=== PATIENT | male | born 1935 | race Caucasian/White ===

== ENCOUNTER 2017-04-23 15:46 | Outpatient (CLI) | payer MEDICARE ==
--- OUTSIDE RECORDS SUMMARY | 2017-04-23 15:49 | XMS | Clinical Summary ---
:1935 Author Organization [facility] Address [address] [place] [address] Phone Care Team Providers Name Role Phone , Primary Care Provider Unavailable Allergies Not on File Current Medications Not on file Active Problems Not on file Social History Tobacco Use Types Packs/Day Years Used Date Never Assessed Sex Assigned at Date Recorded Not on file Last Filed Vital Signs Not on file Plan of Treatment Health Maintenance Due Date Last Done Comments INFLUENZA VACCINE 04/19/2017 Results Not on filefrom Last 3 Months
[2017-04-23 18:28] LABS: #Eosinphils 0.3 thou/uL (0.0-0.7); #Monocytes 0.7 thou/uL (0.11-0.59); #Neutrophils 3.3 thou/uL (1.40-6.50); %Basophils 0.3 % (0.0-1.0); %Eosinophils 6.4 % (0.0-10.0); %Lymphocytes 18.2 % (21.0-51.0); %Monocytes 13.9 % (0.0-10.0); Mean Platelet Volume 8.8 fL (7.4-10.4); Red Blood Cell (RBC) Count 4.33 mill/uL (4.70-6.10); White Blood Cell (WBC) Count 5.3 thou/uL (4.8-10.8)
[2017-04-23 18:47] LABS: Anion Gap 13 mmol/L (10-20); BUN (Urea Nitrogen) 16 mg/dL (8.4-25.7); Calc. Creatinine Clearance 0 mL/min (70-130); Calcium 9.4 mg/dL (7.8-10.44); Carbon Dioxide 24 mmol/L (23-31); Chloride 100 mmol/L (98-107); Estimated GFR-MDRD Greater than 90
--- NOTE | 2017-04-26 17:55 | EKG ---
Test Reason : Blood Pressure : / mmHG Vent. Rate : 071 BPM Atrial Rate : 071 BPM P-R Int : 188 ms QRS Dur : 100 ms QT Int : 412 ms P-R-T Axes : 022 -59 060 degrees QTc Int : 447 ms Sinus rhythm with occasional Premature ventricular complexes Left anterior fascicular block Nonspecific T wave abnormality , Can not R./O ischemia. Abnormal ECG No previous ECGs available Confirmed by MARIAM PACE ([id number]) on 04/26/2017 5:54:54 PM Referred By: Perfecto MAYER Confirmed By:MARIAM PACE
== END 2017-04-23 15:47 | disposition home or self-care (01) ==
LOC: LABBT 15:46
PROVIDERS: ATTEND Specialist
DX: Z01.818 Encounter for other preprocedural examination (principal); K40.90 Unilateral inguinal hernia, without obstruction or gangrene, not specified as recurrent
CPT/HCPCS: 80048; 85025; 93005; 93010

== ENCOUNTER 2017-04-29 08:50 | Day surgery (SDC) | payer MEDICARE ==
[2017-04-23 16:01] VITALS: BMI 23.7
--- NOTE | 2017-04-24 06:22 | HP ---
HISTORY OF PRESENT ILLNESS: Gorge Bergman is an 81-year-old male patient referred by Dr. Lucas in [facility]. The patient has a large right inguinal hernia that is bothersome to him. He has had a prior right hqskv-jqu-rvfu amputation and the hernia is impeding his ability to ambulate with his prosthe sis. He thought he had a small left inguinal hernia, but exam does not reveal that. He was examine d supine, standing and sitting. The patient is noted to have an incisional hernia from a previous a ortobifemoral bypass grafting. This is approximately 6 x 3 cm defect and had been previously seen b y another surgeon Dr. Mac in [place] who recommended observing it. This hernia is asymptoma tic and has been unchanged and I agree with that assessment. Plan is to repair his right inguinal h ernia with mesh as an outpatient. I have discussed this with the patient and his extensively a nd discussed the risk of infection, bleeding, reoperation, recurrence of hernia in use of mesh and t sonia are agreeable. We will plan this as an outpatient. Patient has had prior urinary retention problems. He has had prostate cancer with radiation therapy . He had a vaporization procedure due to bleeding in his bladder. He has had a previous TURP. Dur ing EGD in the past, patient suffered urinary retention. Apparently in [place], a urologist place a Paredes, decompressed him, removed it. He experienced retention again and then presented to his urol ogist in [place] who placed a catheter for a couple of days and then removed it. I have discussed w ith the patient the fact that he will need to urinate prior to discharge. I have told him that if h e cannot he may need a catheter placed. He understands these issues and consents. His states that the urologist previously had given her a number of catheters, but she is not knowledgeable abou t catheterization. The patient reports to my office in a motorized chair. Patient has chronic back pain and takes hydrocodone 7.5. Tylenol and Motrin does not seem to work for his pain. ALLERGIES: CIPRO, COUMADIN, KEFLEX, LEVAQUIN, PLAVIX, SULFA, NORTRIPTYLINE, VIBRA-TABS, FUROSEMIDE, BENADRYL, MORPHINE, LYRICA, CARBAMAZEPINE. PAST SURGICAL HISTORY: Back surgery for spinal stenosis 2002 repeated in 2005, right prwfj-uie-lhrn amputation in 2005, aortobifemoral bypass grafting in [place] in 2005, vaporization of his bladder for bleeding in October of this year, previous radiation to his prostate and oral chemotherapy, previo us TURP, left hip surgery after a hip fracture. The patient had an EGD and colonoscopy recently rev ealing radiation proctitis, otherwise unremarkable. MEDICATIONS: Avodart 0.5 mg a day. He was on Flomax in the past, but discontinued it. Aspirin 81 mg a day, lisinopril daily, carvedilol 12.5 mg a day, hydrocodone 7.5/325 as needed, lorazepam 1 mg daily as needed, Phenergan p.r.n., Zofran p.r.n., Zantac 150 mg daily. PAST MEDICAL HISTORY: Peripheral artery disease, hypertension, history of spinal stenosis, BPH, his tory of prostate cancer status post radiation therapy. His carotid arteries are followed by Dr. Estelle evans with serial ultrasounds. No indication for intervention. Surgically no significant stenosis to day. SOCIAL HISTORY: Tobacco none for 5 or 10 years, used prior to that. REVIEW OF SYSTEMS: Ten-point noncontributory. The patient has had past cardiac stress test that benavidez s been unremarkable, asymptomatic from a cardiac standpoint. Otherwise review of system noncontribu tory except as noted above. PHYSICAL EXAMINATION: GENERAL: 147 pounds, 5 foot 6 inches. He arrives to my office in [facility] and has a right above the knee amputation. VITAL SIGNS: 172/68, 68 heart rate, 96.8 degrees. HEENT: Unremarkable. LUNGS: Clear to auscultation. CARDIAC: Regular rate and rhythm without murmur or gallop. ABDOMEN: Soft. Incisional hernia 5 x 2.5-3 cm defect mid abdomen between the umbilicus and xiphoid , large hernia defect, examined supine and standing. Hernia easily reducible through this larger de fect. Umbilicus is normal without hernia evident, palpable femoral pulses bilaterally. Right above -the-knee amputation. Patient examined standing, sitting and supine. He has a large right inguinal hernia. Left groin without hernia during evaluation in standing, during different Valsalva maneuve rs. Testicles normal. ASSESSMENT AND PLAN: 1. Right inguinal hernia. Would recommend mesh repair as an outpatient. He understands the risks and benefits and consents. We will plan this in the near future. 2. Incisional hernia, asymptomatic, observe. This could be repaired in the future, probably not a good candidate for laparoscopic repair, probably would require an open repair, but as this is asympt omatic at his age of 81, would observe it. 3. Peripheral artery disease status post aortobifemoral bypass grafting. 4. History of right above-knee amputation. 5. Asymptomatic, nonsignificant carotid artery disease followed by Dr. Courtney trevizo. 6. Hypertension. 7. History of tobacco abuse. 8. History of prostate cancer, status post radiation therapy and chemotherapy. 9. Status post vaporization of the bladder recently. 10. History of bladder outlet obstruction with postoperative urinary retention requiring Paredes cath eter placement followed by urologist in [place].
[2017-04-29] MEDS ORDERED: Ketorolac Tromethamine 30 MG/ML VIAL ONE (09:57)
[2017-04-29] MEDS ORDERED: Bupivacaine/Epinephrine 0.25% 30 ML VIAL ONE (11:29)
[2017-04-29] MEDS ORDERED: Levofloxacin 500 mg/D5W 100 ml Premix Bag ONE (11:31)
[2017-04-29] MEDS ORDERED: Clindamycin/D5W 600 mg/50 ml Premix Bag ONE (11:31)
[2017-04-29] MEDS ORDERED: Fentanyl 100 MCG/2 ML VIAL ONE (11:36)
[2017-04-29] MEDS ORDERED: Propofol 200 MG/20 ML VIAL ONE (11:46)
[2017-04-29] MEDS ORDERED: Dexamethasone 20 MG/5 ML VIAL ONE (11:46)
[2017-04-29] MEDS ORDERED: PHENYLEPHRINE-NS 100 MCG/ML 10 ML SYRINGE ONE (11:46)
[2017-04-29] MEDS ORDERED: ePHEDrine/0.9% NaCl/PF SYRINGE 50 mg/10 ml ONE (11:46)
[2017-04-29] MEDS ORDERED: Lidocaine 1% PF 5 ML VIAL ONE (11:46)
[2017-04-29] MEDS ORDERED: Glycopyrrolate 0.2 MG/ML 5 ML SYRINGE ONE (11:46)
[2017-04-29] MEDS ORDERED: Ondansetron HCl/PF 4 MG/2 ML Vial ONE (11:46)
--- NOTE | 2017-04-29 13:41 | OP ---
DATE OF PROCEDURE: 04/29/2017 PREOPERATIVE DIAGNOSES: Right above the knee amputation status, a right inguinal hernia preventing him from wearing his prosthesis, history of urinary retention, history of bladder mucosa vaporizatio n, radiation for prostate cancer and TURP. Right inguinal hernia. POSTOPERATIVE DIAGNOSES: Right above the knee amputation status, a right inguinal hernia preventing him from wearing his prosthesis, history of urinary retention, history of bladder mucosa vaporizati on, radiation for prostate cancer and TURP. Right inguinal hernia. PROCEDURE: Right inguinal hernia repair with PHS extended mesh. In and out cath using a 14-Malawian coude catheter, leaving 120 mL of saline in the bladder. SURGEON: Dr. Juan Heller ANESTHESIA: General LMA. Local 0.25% Marcaine with epinephrine, 30 mL, mixed with 2% Xylocaine, 10 mL. PROCEDURE IN DETAIL: The patient was taken to the operating room where under general LMA anesthesia the abdomen was clipped of hair, prepared with chloraprep, draped in routine fashion. Ioban was us ed. Local anesthetic mixture infiltrated into skin and subcutaneous tissue for ilioinguinal nerve b lock along the line of incision in the right groin. Incision carried down the skin and subcutaneous tissue. External oblique incised in the direction of its fibers to the external ring. Cord struct ures dissected free and surrounded with a Black drain. Hernia sac dissected free. It was very la rge, open under direct visualization and highly ligated with a pursestring suture of 0 Nurolon. Sma ll bowel contents reduced into the abdominal cavity. To the stump of the hernia sac, 0 Nurolon PDS used to approximate the underlay portion of the PHS mesh and underlay portion placed in the preperit hodge space after high excision of the hernia sac. Overlay portion of the mesh placed superiorly hi gh in the inguinal canal placing the extended portion. A slit made in the mesh laterally on the onl ay portion to accommodate the cord structures creating a synthetic internal ring securing the mesh l aterally to itself and to Poupart's ligament. Inferiorly, the mesh secured to Júnior's ligament wit h interrupted suture of 0 Nurolon and another suture more inferiorly, secured the mesh to the Poupar t's ligament inferiorly. Good hemostasis noted. Cord structures were kept intact. Ilioinguinal ne rve was not seen. External oblique closed with continuous suture of 3-0 Monocryl, Camper's fascia w ith continuous suture of 3-0 Monocryl, and skin with continuous sub suture of 4-0 Monocryl with loca l anesthetic mixture infiltrated in the space of the inguinal canal and space above and below Camper 's fascia and infiltrated into skin and subcutaneous tissue. Dermabond applied. A 14-Malawian coude catheter was used to catheterize the bladder under sterile technique with some per sisalyssia so w cannulated the bladder and placed 120 mL awaiting the patient to void prior to dischar ge. The patient tolerated the procedure well.
[2017-04-29] MEDS ORDERED: Sodium Chloride 0.9% 10 ML ONE (15:49)
[2017-04-29] MEDS ORDERED: traMADol HCl 50 MG TAB ONE (16:15)
== END 2017-04-29 16:20 | disposition home or self-care (01) ==
LOC: SDC 08:50
PROVIDERS: ATTEND Specialist
PROC: 0YU50JZ Supplement Right Inguinal Region with Synthetic Substitute, Open Approach (ICD-10-PCS; principal; 2017-04-29)
DX: K40.90 Unilateral inguinal hernia, without obstruction or gangrene, not specified as recurrent (principal); I73.9 Peripheral vascular disease, unspecified; I10 Essential (primary) hypertension; Z79.82 Long term (current) use of aspirin; Z79.899 Other long term (current) drug therapy; Z88.2 Allergy status to sulfonamides; Z88.8 Allergy status to other drugs, medicaments and biological substances; Z88.1 Allergy status to other antibiotic agents; Z88.5 Allergy status to narcotic agent; Z95.1 Presence of aortocoronary bypass graft; Z89.611 Acquired absence of right leg above knee; Z98.890 Other specified postprocedural states; Z92.3 Personal history of irradiation; Z87.81 Personal history of (healed) traumatic fracture; Z85.46 Personal history of malignant neoplasm of prostate; Z87.891 Personal history of nicotine dependence; Z92.21 Personal history of antineoplastic chemotherapy
CPT/HCPCS: 49505; 51798; C1781; A4216; J1100; J1885; J1956; J2001; J2405; J2704; J3010; J3490

== ENCOUNTER 2017-09-04 07:47 | Day surgery (SDC) | payer MEDICARE ==
[2017-09-03 14:27] VITALS: BMI 23.3
[2017-09-04 08:59] LABS: Anisocytosis MODERATE=16-30 cells (100X) (0-5/hpf); Band 1 % (5-11); Eosinophils 5 % (0-10); Hemoglobin 9.4 g/dL (14.0-18.0); Hypochromia SLIGHT = 6-15 cells (100X) (0-5/hpf); Lymphocytes 19 % (21-51); MDiff Complete? YES; Mean Corpuscular HGB CONC 31.3 g/dL (32.0-36.0); Mean Corpuscular Hemoglobin 25.8 pg (27.0-31.0); Mean Corpuscular Volume 82.6 fl (80.0-94.0); Mean Platelet Volume 8.2 fL (7.4-10.4); Monocytes 13 % (0-10); Neutrophil 61 % (42-75); Ovalocytes SLIGHT = 2-5 cells (100X) (0-1/hpf); Platelet Count 296 thou/uL (130-400); Polychromasia SLIGHT = 2-3 cells (100X) (0-2/hpf); Red Blood Cell (RBC) Count 3.62 mill/uL (4.70-6.10); White Blood Cell (WBC) Count 3.9 thou/uL (4.8-10.8)
[2017-09-04 09:05] LABS: Anion Gap 11 mmol/L (10-20); BUN (Urea Nitrogen) 13 mg/dL (8.4-25.7); Calc. Creatinine Clearance 70 mL/min (70-130); Calcium 9.2 mg/dL (7.8-10.44); Carbon Dioxide 25 mmol/L (23-31); Chloride 103 mmol/L (98-107); Estimated GFR-MDRD Greater than 90; Glucose 92 mg/dL (83-110); Potassium 3.5 mmol/L (3.5-5.1); Sodium 135 mmol/L (136-145)
[2017-09-04] MEDS ORDERED: Lidocaine 1% (PF) 30 ML VIAL ONE (09:22)
[2017-09-04] MEDS ORDERED: Fentanyl 100 MCG/2 ML VIAL ONE ×2 (09:43→12:25)
[2017-09-04] MEDS ORDERED: Midazolam HCl 2 mg/2 ml Vial ONE (09:44)
[2017-09-04] MEDS ORDERED: Heparin 10,000 UNITS/1 ML VIAL ONE (10:25)
[2017-09-04] MEDS ORDERED: hydrALAZINE 20 MG/ML VIAL ONE ×2 (10:27→15:43)
[2017-09-04] MEDS ORDERED: Protamine Sulfate 50 MG/5 ML VIAL ONE (10:35)
--- NOTE | 2017-09-04 11:23 | OP ---
DATE OF PROCEDURE: 09/04/2017. PREOPERATIVE DIAGNOSIS: Peripheral vascular disease with known long segment SFA near occlusion. POSTOPERATIVE DIAGNOSIS: Peripheral vascular disease with known long segment SFA near occlusion. PROCEDURES: 1. Left antegrade stick with left superficial femoral artery angiogram. 2. Left popliteal artery angiogram. 3. Left tibioperoneal trunk artery angiogram. 4. Left SFA/popliteal artery [employer]ALENT ACQUISITION with a 3 x 200 Dana balloon taken to 16 mmHg in 2 separate locat ions for 2 minutes each inflation. TOTAL CONTRAST: 24 mL. FLUORO TIME: 6.1 minutes. MEDICATIONS: Heparin 5000 units with reversal with 25 mg of protamine. ANESTHESIA: Lidocaine 1% for local/1 mg of Versed/75 mcg of fentanyl for IV pain relief. DESCRIPTION OF PROCEDURE: After consent was obtained, the patient was brought to the labeling strategist and pl aced in the supine position on the labeling strategist table. Appropriate anesthetic monitor was placed. IV se dation was begun. Groins were prepped and draped in the usual sterile fashion. The left groin was a nesthetized with 1% lidocaine. Using ultrasound guidance, the left common femoral artery was punctur ed in an antegrade fashion. Hand injected arteriogram was performed to road map the superficial femo ral artery. Stiff micropuncture guidewire was placed. Serial dilators were used to dilate the tract and bring in a 6-Thai radial sheath. Hand injected arteriogram was performed with the tip of the sheath in the superficial femoral artery. The superficial femoral artery and popliteal arteries were heavily calcified with multiple areas of near occlusion. The patient was given 5000 units of hepari n. A 0.014 loose wire was then passed through the sheath down into the superficial femoral artery. Angled glide catheter was used to guide the wire down into the popliteal artery. Hand injected arter iogram was performed illuminating the popliteal and tibial arteries. Popliteal artery was normal. T he posterior tibial and peroneal arteries were the blood supply to the foot, which ran all the way to the foot. The angled glide catheter and loose wire again were used to traverse the area of occlusio n within the proximal popliteal artery down to the tibioperoneal trunk. Tip of the catheter was posi tioned in the tibioperoneal trunk and hand injected arteriogram performed showing intraluminal locati on. A Magic Torque 0.035 guidewire was then placed into the peroneal artery. Catheter was removed. A 3 x 200 balloon was selected. This was positioned in the mid popliteal artery and proximal. Ball oon was inflated and held for 2 minutes at 15 mmHg. The balloon was then backed up into the proximal superficial femoral artery, proximal to all the areas of stenosis and reinflated. After 2 minutes, the balloon was deflated and removed. Hand injected arteriogram showed a good result. There were mu ltiple areas of small dissection, but excellent flow down into the popliteal artery and tibials. The patient was given 25 mg of protamine and sheath removed. Manual pressure was held for hemostasis. The patient was transferred to the recovery area in stable condition.
[2017-09-04] MEDS ORDERED: hydrALAZINE 20 MG/ML VIAL SLOW IVP PRN ×2 (12:01→12:02)
[2017-09-04] MEDS ORDERED: Fentanyl 100 MCG/2 ML VIAL SLOW IVP PRN (12:03)
[2017-09-04] MEDS ORDERED: Acetaminophen 325 MG TAB PO PRN (12:04)
[2017-09-04] MEDS ORDERED: Simethicone Chewable 80 MG TAB PO PRN (13:35)
[2017-09-04] MEDS ORDERED: Mag-Al 1200 mg/1200 mg/30 ML UDCUP PO PRN (13:36)
[2017-09-04] MEDS ORDERED: Iopamidol 370 76% 50 ML VIAL FS ONE (15:39)
== END 2017-09-04 17:13 | disposition home or self-care (01) ==
LOC: CCL 07:47
PROVIDERS: ATTEND Thoracic Surgery (Cardiothoracic Vascular Surgery)
DX: I70.202 Unspecified atherosclerosis of native arteries of extremities, left leg (principal); I10 Essential (primary) hypertension; Z88.1 Allergy status to other antibiotic agents; Z88.8 Allergy status to other drugs, medicaments and biological substances; Z98.890 Other specified postprocedural states; Z85.46 Personal history of malignant neoplasm of prostate; Z92.3 Personal history of irradiation; Z92.21 Personal history of antineoplastic chemotherapy
CPT/HCPCS: 37224; 76942; 80048; 85025; 85347; 96374; C1725 ×2; C1769 ×2; 99152; 99153; J0360; J1644; J2001; J2250; J2720; J3010